=== PATIENT | male | born 1970 | race Two or more races ===

== ENCOUNTER 2019-01-27 05:51 | Emergency (ER) | payer MEDICAID ==
[~2019-01-27] VITALS: Ht 167.6 cm; Wt 72.6 kg
[2019-01-27 06:50] VITALS: BP 138/99
[2019-01-27] MEDS: TETRACAINE HCL 0.5% OPTH(EYE) SOLN 4ML EACHEYE ONE (07:07)
[2019-01-27] MEDS: FLUORESCEIN SOD 1 MG TEST STRIP OP ONE (07:07)
== END 2019-01-27 07:20 | disposition home or self-care (01) ==
LOC: ER 05:51
DX: H10.32 Unspecified acute conjunctivitis, left eye (principal); E11.9 Type 2 diabetes mellitus without complications

== ENCOUNTER 2023-04-21 21:11 | Emergency (ER) | payer MEDICAID ==
[~2023-04-21] VITALS: Ht 170.2 cm; Wt 81.0 kg
[2023-04-21 21:11] VITALS: BP 142/94; PULSE 78; RESP 20; O2SAT 98
== END 2023-04-22 03:30 | disposition left against medical advice (07) ==
LOC: ER 21:13
DX: S81.832A Puncture wound without foreign body, left lower leg, initial encounter (principal); E11.9 Type 2 diabetes mellitus without complications; X58.XXXA Exposure to other specified factors, initial encounter; Y93.89 Activity, other specified; Y92.89 Other specified places as the place of occurrence of the external cause; Y99.8 Other external cause status